=== PATIENT | female | born 1965 | race Caucasian/White ===

== ENCOUNTER → 2021-07-08 11:34 | Outpatient (CLI) | payer OTHER, MEDICAID, SELFPAY ==
--- NOTE | 2021-07-08 | DI.US.S_ITS ---
ULTRASOUND OF RIGHT BREAST: 07/08/2021 CLINICAL: Patient returns today to evaluate a focal asymmetry in the right breast. Comparison is made to exams dated: 07/08/2021 mammogram - [facility], 05/04/2021 mammogram, and 10/02/2018 mammogram - [facility]. Color flow and real-time ultrasound of the right breast were performed. Louie scale images of the real-time examination were reviewed. There is a 0.9 cm x 0.6 cm x 0.7 cm cluster of oval cysts with thin septated internal wellington in the right breast at 1 o'clock middle depth 4 cm from the nipple. This cluster of oval cysts is hypoechoic with posterior acoustic enhancement. This correlates with mammography findings. Color flow imaging demonstrates that there is no vascularity present. IMPRESSION: PROBABLY BENIGN The 0.9 cm x 0.6 cm x 0.7 cm oval cluster of cysts vs complicated cyst in the right breast is probably benign. A follow-up right mammogram and an ultrasound in 6 months is recommended to demonstrate stability. Findings and recommendations were conveyed to the patient during today's evaluation. This exam was interpreted at Station ID: [id number]. Electronically Signed By: Saravanan Hardy M.D. aty/:07/08/2021 13:07:36 letter sent: Followup Recommended Ultrasound BI-RADS: 3 Probably benign
--- NOTE | 2021-07-08 | DI.MG.S_ITS ---
UNILATERAL RIGHT DIGITAL DIAGNOSTIC MAMMOGRAM 3D/2D WITH ADDITIONAL VIEWS: 07/08/2021 CLINICAL: Additional evaluation requested from prior study. Comparison is made to exams dated: 05/04/2021 mammogram and 10/02/2018 mammogram - [facility]. The tissue of right breast is heterogeneously dense. This may lower the sensitivity of mammography. There is a 1.1 cm oval focal asymmetry in the right breast at 1 o'clock middle depth. This is seen in additional views. This is more prominent. No other significant masses or calcifications are seen in the breast. IMPRESSION: INCOMPLETE: NEEDS ADDITIONAL IMAGING EVALUATION The 1.1 cm oval focal asymmetry in the right breast resembles a cyst, a solid mass, or a lymph node and is indeterminate. An ultrasound is recommended for further evaluation and is scheduled to immediately follow this examination. This exam was interpreted at Station ID: [id number]. NOTE: For mammograms, a report in lay terms will be sent to the patient. Approximately 15% of breast malignancies will not be visualized mammographically. In the management of a palpable breast mass, a negative mammogram must not discourage biopsy of a clinically suspicious lesion. Electronically Signed By: Saravanan Hardy M.D. aty/:07/08/2021 12:47:38 ACR BI-RADS Category 0: Incomplete 3340F
== END ==
PROVIDERS: PCP Registered Nurse; Referring Provider Registered Nurse; Visit Provider Registered Nurse
DX: R92.8 Other abnormal and inconclusive findings on diagnostic imaging of breast (principal); N60.01 Solitary cyst of right breast
CPT/HCPCS: 76642; 77065; G0279

== ENCOUNTER → 2022-01-18 10:01 | Outpatient (CLI) | payer OTHER, MEDICAID, SELFPAY ==
--- NOTE | 2022-01-18 | DI.MG.S_ITS ---
UNILATERAL RIGHT DIGITAL DIAGNOSTIC MAMMOGRAM 3D/2D: 01/18/2022 CLINICAL: Short term follow up of the right breast. Comparison is made to exams dated: 07/08/2021 ultrasound, 07/08/2021 mammogram - [facility], and 05/04/2021 mammogram - [facility]. The right breast is heterogeneously dense, which may obscure small masses (category c / 51-75% glandular tissue). There is a 0.7 cm oval focal asymmetry in the right breast at 1 o'clock anterior depth. This is seen in additional views and demonstrated by prior ultrasound to be a complicated cyst or clustered cysts. This is not significantly changed. No other significant masses or calcifications are seen in the breast. IMPRESSION: INCOMPLETE: NEEDS ADDITIONAL IMAGING EVALUATION The 0.7 cm oval focal asymmetry in the right breast has not significantly changed. An ultrasound is recommended to document stability. This was performed immediately following this exam. This exam was interpreted at Station ID: [id number]. NOTE: For mammograms, a report in lay terms will be sent to the patient. Approximately 15% of breast malignancies will not be visualized mammographically. In the management of a palpable breast mass, a negative mammogram must not discourage biopsy of a clinically suspicious lesion. Electronically Signed By: Eve danielle/:01/18/2022 10:35:44 ACR BI-RADS Category 0: Incomplete [id number]
--- NOTE | 2022-01-18 | DI.US.S_ITS ---
LIMITED ULTRASOUND OF RIGHT BREAST: 01/18/2022 CLINICAL: 6 month follow-up of cysts. Comparison is made to exams dated: 01/18/2022 mammogram, 07/08/2021 ultrasound, 07/08/2021 mammogram - [facility], 05/04/2021 mammogram, and 10/02/2018 mammogram - . Color flow ultrasound of the right breast 1 o'clock region was performed. Louie scale images of the real-time examination were reviewed. There is a 0.8 cm x 0.7 cm x 0.6 cm oval cyst with a septated internal wall in the right breast at 1 o'clock anterior depth 4 cm from the nipple. This oval cyst is anechoic. This abnormality is not significantly changed and correlates with mammography findings. Color flow imaging demonstrates that there is no vascularity present. IMPRESSION: PROBABLY BENIGN The 0.8 cm x 0.7 cm x 0.6 cm oval cyst in the right breast most likely is a complicated cyst and is probably benign. A follow-up right ultrasound in 6 months is recommended to demonstrate stability. The patient will be due for bilateral mammograms at that same visit. Findings and recommendations were conveyed to the patient at time of exam. This exam was interpreted at Station ID: [id number]. Electronically Signed By: Eve danielle/:01/18/2022 11:02:36 letter sent: Followup Recommended Ultrasound BI-RADS: 3 Probably benign
== END ==
PROVIDERS: PCP Registered Nurse; Referring Provider Registered Nurse; Visit Provider Registered Nurse
DX: R92.8 Other abnormal and inconclusive findings on diagnostic imaging of breast (principal); N60.01 Solitary cyst of right breast
CPT/HCPCS: 76642; 77065; G0279

== ENCOUNTER → 2022-08-31 10:18 | Outpatient (CLI) | payer OTHER, MEDICAID, SELFPAY ==
--- NOTE | 2022-08-31 | DI.MG.S_ITS ---
BILATERAL DIGITAL DIAGNOSTIC MAMMOGRAM 3D/2D: 08/31/2022 CLINICAL: Short term follow up of the right breast, due for bilateral imaging. Comparison is made to exams dated: 01/18/2022 ultrasound, 01/18/2022 mammogram, 07/08/2021 ultrasound - [facility], 05/04/2021 mammogram - [facility], and 07/08/2021 mammogram - [facility]. Both breasts are heterogeneously dense, which may obscure small masses (category c / 51-75% glandular tissue). There is a stable 0.7 cm oval focal asymmetry in the right breast at 1 o'clock anterior depth. No other significant masses, calcifications, or other findings are seen in either breast. IMPRESSION: INCOMPLETE: NEEDS ADDITIONAL IMAGING EVALUATION The stable 0.7 cm oval focal asymmetry in the right breast is indeterminate. A targeted ultrasound of the right breast is recommended and will be performed immediately following this exam. Based on the Tyrer Cuzick model (a risk assessment model) the patient's lifetime risk is 19.8% and her 10 year risk is 7.1%. According to the ACR, ACS, and NCCN guidelines, an annual breast MRI exam along with mammogram is recommended if the patient's lifetime risk is 20% or greater. This exam was interpreted at Station ID: [id number]. NOTE: For mammograms, a report in lay terms will be sent to the patient. Approximately 15% of breast malignancies will not be visualized mammographically. In the management of a palpable breast mass, a negative mammogram must not discourage biopsy of a clinically suspicious lesion. Electronically Signed By: Molly Santos M.D. lk/:08/31/2022 10:46:26 ACR BI-RADS Category 0: Incomplete [id number]
--- NOTE | 2022-08-31 | DI.US.S_ITS ---
ULTRASOUND OF RIGHT BREAST: 08/31/2022 CLINICAL: 6 month follow-up of cysts. Comparison is made to exams dated: 08/31/2022 mammogram, 01/18/2022 ultrasound, 01/18/2022 mammogram, 07/08/2021 ultrasound, 07/08/2021 mammogram - [facility], and 05/04/2021 mammogram - [facility]. Ultrasound of the right breast was performed on the area of interest. Louie scale images of the real-time examination were reviewed. There is a stable oval cyst with a septated internal wall in the right breast at 1 o'clock anterior depth. This oval cyst is anechoic. This correlates with mammography findings. Color flow imaging demonstrates that there is no vascularity present. IMPRESSION: PROBABLY BENIGN The stable oval cyst in the right breast most likely is a complicated cyst and is probably benign. A follow-up ultrasound in 6 months is recommended to demonstrate stability. This exam was interpreted at Station ID: [id number]. Electronically Signed By: Molly mejia/:08/31/2022 11:12:55 letter sent: Followup Recommended Ultrasound BI-RADS: 3 Probably benign
== END ==
PROVIDERS: PCP Registered Nurse; Referring Provider Registered Nurse; Visit Provider Registered Nurse
DX: R92.8 Other abnormal and inconclusive findings on diagnostic imaging of breast (principal); N60.01 Solitary cyst of right breast
CPT/HCPCS: 76642; 77066; G0279

== ENCOUNTER → 2022-11-30 10:17 | Outpatient (CLI) | payer OTHER, SELFPAY ==
--- NOTE | 2022-11-30 10:19 | DI.MG.S_ITS ---
UNILATERAL RIGHT DIGITAL DIAGNOSTIC MAMMOGRAM 3D/2D: 11/30/2022 CLINICAL: Palpable right breast lump x's 1 month - treated with antiobiotics/prednisone, has somewhat resolved. CBE performed. Comparison is made to exams dated: 08/31/2022 mammogram, 01/18/2022 mammogram, 07/08/2021 mammogram - [facility], 10/02/2018 mammogram, 05/04/2021 mammogram - [facility], and 08/31/2022 ultrasound - [facility]. The right breast is extremely dense, which lowers the sensitivity of mammography (category d />75% glandular tissue). No interval change on right breast mammogram. No significant masses, calcifications, or other findings are seen in the breast. IMPRESSION: PROBABLY BENIGN No interval change seen. Exam findings were conveyed to the patient. Patient reports improved palpable abnormality and rash. Patient is advised to monitor for significant change. Clinical follow-up as needed. Small cyst in the right breast is unchanged on mammogram. A follow-up right ultrasound in 3 months is recommended. 03/02/2023 Based on Tyrer-Cuzick model (a risk assessment model), the patient's lifetime risk is 28.2% and her 10 year risk is 11.1%. If a patient has an elevated risk, a more comprehensive evaluation should be considered and/or a referral to a genetic counselor. The [employer], [employer], and NCCN Guidelines advise the consideration of Breast MRI as an adjunct to screening mammography in patients whose Lifetime risk to develop breast cancer is 20% or higher. This exam was interpreted at Station ID: [id number]. NOTE: For mammograms, a report in lay terms will be sent to the patient. Approximately 15% of breast malignancies will not be visualized mammographically. In the management of a palpable breast mass, a negative mammogram must not discourage biopsy of a clinically suspicious lesion. Electronically Signed By: Dipesh Nicolas M.D. slc/:11/30/2022 11:50:01 letter sent: Followup Recommended ACR BI-RADS Category 3: Probably benign [id number]
== END ==
PROVIDERS: PCP Registered Nurse; Referring Provider Registered Nurse; Visit Provider Registered Nurse
DX: N64.4 Mastodynia (principal); N60.01 Solitary cyst of right breast
CPT/HCPCS: 77065; G0279

== ENCOUNTER → 2023-05-23 11:44 | Outpatient (CLI) | payer OTHER, MEDICAID, SELFPAY ==
--- NOTE | 2023-05-23 | DI.MRI.S_ITS ---
BREAST MRI OF BOTH BREASTS: 05/23/2023 CLINICAL: High Risk screening. PROCEDURE: MR BREAST BI WO/W CON INDICATIONS: High risk breast cancer screening TECHNIQUE: The patient was placed prone in a dedicated breast imaging coil. Precontrast axial STIR and 3D FLASH without fat saturation sequences were obtained. Both before and after bolus injection of contrast, sequential 1-minute axial 3D FLASH with fat saturation sequences for 3 time points, with subtraction images and maximum intensity projections (MIP's) generated. Delayed sagittal FLASH images with fat saturation were also obtained. Computer-aided detection, including computer algorithm analysis of MRI image data for lesion detection and characterization, pharmacokinetic analysis, with further physician review for interpretation, was performed. COMPARISON: Mammogram 11/30/2022, 08/31/2022, 01/18/2022. FINDINGS: Image quality: Diagnostic. There is extreme amount of fibroglandular tissue. There is mild and symmetric background parenchymal enhancement. Right breast: There is benign ductal ectasia. No suspicious enhancement or lymphadenopathy. Left breast: There is benign ductal ectasia. No suspicious enhancement or lymphadenopathy. IMPRESSION: BENIGN Bilateral benign ductal ectasia. No MRI evidence of malignancy. Recommend continued annual time and MRI screening. This exam was interpreted at Station ID: [id number]. Electronically Signed By: Ana Shoemaker M.D., PH.D eb/:05/23/2023 16:06:21 ACR BI-RADS Category 2: Benign Finding(s) 3342F
== END ==
PROVIDERS: PCP Registered Nurse; Referring Provider Registered Nurse; Visit Provider Registered Nurse
DX: Z91.89 Other specified personal risk factors, not elsewhere classified (principal); Z12.39 Encounter for other screening for malignant neoplasm of breast; N60.42 Mammary duct ectasia of left breast; N60.41 Mammary duct ectasia of right breast
CPT/HCPCS: 77049; A9579

== ENCOUNTER → 2024-04-08 14:51 | Outpatient (CLI) | payer OTHER, SELFPAY ==
--- NOTE | 2024-04-08 | DI.CT.S_ITS ---
PROCEDURE: CT CHEST WO CON INDICATIONS: ANEURYSM ASC AORTA/CHEST PAIN TECHNIQUE: Noncontrast 5 mm thick sections acquired from the pulmonary apices to the posterior costophrenic angles. 1 mm lung window, 5 mm thick coronal and sagittal and 7 mm axial MIP reformats were then acquired. For radiation dose reduction, the following was used: automated exposure control, adjustment of mA and/or kV according to patient size. COMPARISON: None. FINDINGS: Image quality: Diagnostic. Lungs and Pleura: Central and peripheral airways are normal without bronchial wall thickening or bronchiectasis. Mild upper lobe centrilobular emphysematous changes. Juxta fissural lymph node anterior right mid lung. Several nodules: Subpleural solid nodule 0.5 x 0.6 cm right middle lobe, 3/220. Solid subpleural right lower lobe nodule laterally measuring 0.7 x 0.7 cm, 3/243. Pleural-based lateral right middle lobe nodule, 0.6 x 0.7 cm, 3/270. Pleural-based nodule measuring 6 mm posterior right lower lobe, 3/205. Pleural-based lingular nodule is part solid measuring 4 mm, 3/188. Lateral left lower lobe pleural-based solid nodule measures 5 mm, 3/264. Pleural-based solid nodule lateral left lower lobe, 0.6 x 0.6 cm, 3/255. Subpleural ovoid nodule lateral left lower lobe measuring 5 mm, 3/247. Juxtapleural lymph node in the left mid lung, 3/218. No other masses. No ground-glass opacities or dense consolidations. No pleural effusions or pleural calcification. Lower Neck: No enlarged lymph nodes. Thyroid: Normal CT appearance. Axillae: No enlarged lymph nodes. Chest Wall: No suspicious chest wall mass. Bones: No suspicious bone lesions. L1 vertebral body hemangioma. Mild degenerative changes in the thoracic spine. Heart: Heart size is normal. No pericardial effusion. Thoracic Vessels: Borderline ascending aortic aneurysm at 4.0 cm in maximal AP diameter. Trace aortic arch calcification. Normal caliber descending thoracic aorta. Mediastinum and Thuy: No enlarged lymph nodes. Esophagus: No wall thickening. No hiatal hernia. Upper Abdomen: Visualized upper abdomen solid organs and bowel loops appear normal. IMPRESSION: Borderline ascending aortic aneurysm. Numerous solid pulmonary nodules bilaterally, the largest measuring up to 0.7 cm. Six-month follow-up chest CT is recommended to begin to establish long-term stability. Dictated by: Eve Jimenez M.D. on 04/09/2024 at 13:54 Approved by: Eve Jimenez M.D. on 04/09/2024 at 14:05
--- NOTE | 2024-04-08 | DI.NM.S_ITS ---
PROCEDURE: NM EXERCISE TREADMILL NON NUC COMPARISON: None. INDICATIONS: ANEURYSM ASC AORTA/CHEST PAIN FINDINGS: The patient exercised for 11 minutes and 1 second reaching 88% of maximum predicted heart rate. 10.9METs, KENN -57%. No diagnostic ST changes and no angina during exercise or recovery. Frequent PACs during recovery. IMPRESSION: Low risk, normal treadmill ECG only stress test from inducible ischemia standpoint. Excellent exercise tolerance (KENN -57%). Frequent PACs during recovery. Dictated by: Paulo Edwards MD on 04/09/2024 at 16:40 Approved by: Paulo Edwards MD on 04/09/2024 at 16:42
== END ==
PROVIDERS: PCP Registered Nurse; Referring Provider Internal Medicine; Visit Provider Internal Medicine
DX: I71.21 Aneurysm of the ascending aorta, without rupture (principal); R07.9 Chest pain, unspecified; R91.8 Other nonspecific abnormal finding of lung field; M47.814 Spondylosis without myelopathy or radiculopathy, thoracic region; D18.09 Hemangioma of other sites
CPT/HCPCS: 71250; 93017

== ENCOUNTER → 2024-06-10 15:13 | Outpatient (CLI) | payer OTHER, SELFPAY ==
--- NOTE | 2024-06-10 | DI.MG.S_ITS ---
MM screening mammo BI: 06/10/2024. BI-RADS: 1 CLINICAL: 58-year old female for bilateral screening mammogram. Tyrer-Cuzick lifetime risk of 15.7%. No personal or first-degree family history of breast cancer. Current reported family history of breast cancer: paternal grandmother. PRIOR EXAMS 05/23/2023, 11/30/2022, 08/31/2022, 01/18/2022, 07/08/2021, 05/04/2021. MAMMOGRAPHY TECHNIQUE: 2D and 3D (tomosynthesis) digital mammographic views obtained, with additional images as needed for full coverage. Current study was also evaluated with a Computer Aided Detection (CAD) system. DENSITY D. The breasts are extremely dense, which lowers the sensitivity of mammography. MAMMOGRAPHY FINDINGS Bilateral: No suspicious mass, asymmetry, microcalcification, or other abnormality seen. IMPRESSION: * No evidence of malignancy. RECOMMENDATIONS Bilateral * Annual screening mammography. OVERALL ASSESSMENT CATEGORY BI-RADS-1: Negative. The [employer] recommends annual screening mammography beginning at age 40 for women with average risk of breast cancer. ELECTRONICALLY SIGNED: Katy Rodriguez M.D. on 06/11/2024 at 06:53:16 PM PT Interpreting Station ID: [id number]
== END ==
LOC: MAMMO 15:13
PROVIDERS: PCP Registered Nurse; Referring Provider Registered Nurse; Visit Provider Registered Nurse
DX: Z12.31 Encounter for screening mammogram for malignant neoplasm of breast (principal); R92.30 Dense breasts, unspecified; Z80.3 Family history of malignant neoplasm of breast
CPT/HCPCS: 77063; 77067

== ENCOUNTER → 2024-10-29 14:19 | Outpatient (CLI) | payer OTHER, SELFPAY ==
--- NOTE | 2024-10-29 14:23 | DI.CT.S_ITS ---
PROCEDURE: CT CHEST WO CON INDICATIONS: Pulmonary nodule TECHNIQUE: Noncontrast 5 mm thick sections acquired from the pulmonary apices to the posterior costophrenic angles. 1 mm lung window, 5 mm thick coronal and sagittal and 7 mm axial MIP reformats were then acquired. For radiation dose reduction, the following was used: automated exposure control, adjustment of mA and/or kV according to patient size. COMPARISON: [facility], CT, CT CHEST WO CON, 04/08/2024, 15:03. FINDINGS: Image quality: Diagnostic. Lower Neck: No enlarged lymph nodes. Thyroid: No thyroid nodules which require sonographic follow up, per consensus guidelines. Axillae: No enlarged lymph nodes. Chest Wall: Unremarkable. Bones: L1 vertebral hemangioma. Lungs and Pleura: No pneumothorax or pleural effusions. Multiple solid pulmonary nodules are again seen. These nodules have smooth margins, a benign feature. Additionally, many of these nodules are in a juxtapleural location, most consistent with benign intrapulmonary lymph nodes. This includes the 5 cm right lower lobe nodule (series 3, image 263) and the 7 mm left lower lobe nodule (series 3, image 243). These are stable from prior. There is a subpleural nodule with smooth margins in the right lower lobe measuring 6-7 mm, unchanged from prior (series 3, image 236). Heart: Heart size is normal. No pericardial effusion. Thoracic Vessels: Stable ascending aortic aneurysm measuring 4 cm. Mediastinum and Thuy: No enlarged lymph nodes. Esophagus: No wall thickening. No hiatal hernia. Upper Abdomen: Visualized upper abdomen solid organs and bowel loops appear normal. IMPRESSION: Stable solid pulmonary nodules, many of which have benign features including smooth margins and juxtapleural location. Additional 1 year follow-up is recommended per consensus guidelines. Stable ascending aortic aneurysm measuring 4 cm. Surveillance is recommended. Dictated by: Steve Dudley M.D. on 10/30/2024 at 12:28 Approved by: Steve Dudley M.D. on 10/30/2024 at 12:33
== END ==
LOC: CT 14:21
PROVIDERS: PCP Registered Nurse; Referring Provider Registered Nurse; Visit Provider Registered Nurse
DX: I71.21 Aneurysm of the ascending aorta, without rupture (principal); R91.8 Other nonspecific abnormal finding of lung field
CPT/HCPCS: 71250